=== PATIENT | female | born 1980 | race Caucasian/White ===

== ENCOUNTER → 2018-04-03 15:57 | Outpatient (CLI) | payer BC, SELFPAY ==
[2018-04-03 20:07] LABS: Chlamydia Trachomatis by PCR Negative (Negative); Neisserai gonorrhoeae by PCR Negative (Negative); Probe Check PASS; Sample Adequacy Control PASS; Specimen Processing Control PASS
[2018-04-07 14:27] LABS: HPV Reflexed? NOT INDICATED
== END ==
PROVIDERS: Visit Provider Obstetrics & Gynecology
DX: Z12.4 Encounter for screening for malignant neoplasm of cervix (principal); Z11.3 Encounter for screening for infections with a predominantly sexual mode of transmission
CPT/HCPCS: 87491; 87591; 88175; G0145

== ENCOUNTER → 2018-11-23 17:31 | Outpatient (CLI) | payer BC, SELFPAY ==
[2018-11-23 19:33] LABS: Chlamydia Trachomatis by PCR Negative (Negative); Neisserai gonorrhoeae by PCR Negative (Negative); Probe Check PASS; Sample Adequacy Control PASS; Specimen Processing Control PASS
== END ==
PROVIDERS: Referring Provider Obstetrics & Gynecology; Visit Provider Obstetrics & Gynecology
DX: Z11.3 Encounter for screening for infections with a predominantly sexual mode of transmission (principal)
CPT/HCPCS: 87491; 87591

== ENCOUNTER → 2018-12-16 11:12 | Outpatient (CLI) | payer BC, SELFPAY ==
[2018-12-16 14:07] LABS: Color, Urine Yellow (Yellow); Glucose, Dipstick Normal (Normal); Ketone-Dipstick Negative (Negative); Leukocyte Esterase-Dipstick Negative /ul (Negative); Nitrite-Dipstick Negative (Negative); Occult Blood-Urine Negative /ul (Negative); Protein-Dipstick Negative (Negative); Urine Bilirubin Dipstick Negative (Negative); Urine Clarity Sl. Cloudy (Clear); Urine Urobilinogen Normal (Normal)
[2018-12-16 15:49] LABS: Absolute Lymphocyte Count 2.17 X10^3/ul (0.83-4.51); Basophil# 0.03 X10^3/uL; Basophil% 0.3 % (0-1); Eosinophil# 0.16 X10^3/uL; Eosinophils% 1.6 % (0-5); Hematocrit 41.4 % (37-47); Hemoglobin 13.9 g/dl (12.0-15.0); Lymphocyte # 2.17 X10^3/ul (4.0); Lymphocyte % 21.8 % (19-41); Mean Corp Hgb Conc 33.6 g/gl (32-36); Mean Corpuscular Volume 89.4 fL (81-99); Mean Platelet Vol. 10.6 fl (6.2-12.0); Monocyte# 0.45 X10^3/uL; Monocyte% 4.5 % (0-10); Neutrophil % 70.2 % (47-70); Platelet Count 251 K/mm3 (150-450); RBC Distribution Width CV 12.8 % (11.6-14.6); RBC Distribution Width SD 41.1 fl (35.1-43.9); Red Blood Count 4.63 M/mm3 (4.2-5.4)
[2018-12-16 15:50] LABS: POSITIVE COUNT NO; POSITIVE DIFFERENTIAL NO; POSITIVE MORPHOLOGY NO
[2018-12-16 16:56] LABS: HIV - WCH Non-Reactive (Nonreactive); Rubella IgG > 500.0 IU/mL
[2018-12-18 01:11] LABS: Prenatal RPR NONREACTIVE (NONREACTIVE)
[2018-12-18 11:12] LABS: HEPATITIS B SURFACE AG Negative (Negative); Hep C Antibodies <0.1 s/co ratio (0.0-0.9)
--- OUTSIDE RECORDS SUMMARY | 2019-02-17 09:01 | XMS RPT_ITS ---
:1980 Author Organization OHIP Care Team Providers Name Role Phone Kristin Christianson Attending Unavailable Primay Care Physicia, No Primary Care Unavailable Kristin Christianson Referring Unavailable Kristin Christianson Attending Unavailable Primay Care Physicia, No Primary Care Unavailable Kristin Christianson Attending Unavailable Kristin Christianson Referring Unavailable Primay Care Physicia, No Primary Care Unavailable PROBLEMS PROBLEMS DATE TYPE CONDITION / CODE ATTENDING STATUS SOURCE 12/16/2018 Unknown Z34.81 - Encounter Kristin Christianson Active [place] for supervision of Community other normal Hospital , first Repository trimester / Z34.81(ICD-10) 11/25/2018 Unknown Z11.3 - Encounter Kristin Christianson Active [place] for screening for Community infections with a Hospital [facility] Repository sexual mode of transmission / Z11.3(ICD-10) 04/04/2018 Unknown Z12.4 - Encounter Kristin Christianson Active [place] for screening for Community malignant neoplasm Hospital of cervix / Repository Z12.4(ICD-10) PROCEDURES PROCEDURES No Procedure Records FoundRESULTS RESULTS URINALYSIS, ROUTINE Collected: 12/16/2018 Status: F Source: [place] (DIPSTICK) 11:15 AM [facility] HOSPITAL REPOSITORY Order Comment: How was Urine Obtained? Urine, Random TYPE CODE TESTS RESULT OUT OF RANGE REFERENCE UNITS LAB L400.3000 Yellow COLOR Normal Yellow LAB L400.3050 Clear Normal CLARITY Sl. Cloudy LAB L400.3200 Normal mg/dl Normal GLUCOSE, UR Normal LAB L400.3300 Negative mg/dL Normal BILIRUBIN URINE Negative LAB L400.3400 Negative mg/dl Normal KETONE UR Negative LAB L400.3465 1.002-1.030 Normal SP.GR. DIPSTX 1.010 LAB L400.3550 5.0 - 8.0 pH UR Normal 7.0 LAB L400.3600 Negative mg/dl PROT Normal DIPSTX Negative LAB L400.3700 Normal mg/dl Normal UROBILI Normal LAB L400.3750 Negative Normal NITRITE UR Negative LAB L400.3780 Negative /ul Normal OCCULT BLOOD-UR Negative LAB L400.3800 Negative /ul LEUK Normal ESTERASE Negative Performed By: #### L400.2010 #### [facility] [address] [place], [address] CBC W/DIFF, AUTOMATED Collected: 12/16/2018 Status: F Source: [place] 11:15 AM [facility] REPOSITORY TYPE CODE TESTS RESULT OUT OF RANGE REFERENCE UNITS LAB L100.1000 4.4-11.0 K/mm3 Normal WBC 10.0 LAB L100.1200 4.2-5.4 M/mm3 Normal RBC 4.63 LAB L100.1300 12.0-15.0 g/dl Normal HGB 13.9 LAB L100.1400 37-47 % Normal HCT 41.4 LAB L100.1500 81-99 fL Normal MCV 89.4 LAB L100.1600 27.0-32.0 pg Normal MCH 30.0 LAB L100.1700 32-36 g/gl Normal MCHC 33.6 LAB L100.1810 11.6-14.6 % Normal RDW CV 12.8 LAB L100.1820 35.1-43.9 fl Normal RDW SD 41.1 LAB L100.1900 150-450 K/mm3 Normal PLT 251 LAB L100.2000 6.2-12.0 fl Normal MPV 10.6 LAB L100.2100 47-70 % High NEUT% 70.2 LAB L100.2200 19-41 % Normal LY% 21.8 LAB L100.2300 0-10 % Normal MONO% 4.5 LAB L100.2400 0-5 % Normal EO% 1.6 LAB L100.2500 0-1 % Normal BASO% 0.3 LAB L100.2550 0.0-0.9 % High IM GRAN % 1.600 Result Comment: IG% - Immature Granulocytes (promyelocytes, myelocytes and metamyelocytes) > 1% indicates that a LEFT SHIFT is Present. LAB L100.2620 2.0-7.7 X10 3/uL Normal Absolute Neut 7.0 LAB L100.2720 0.83-4.51 X10 3/ul Normal Absolute Lymph 2.17 Performed By: #### L100.0100 #### [facility] [address] [place], [address] THYROID STIM HORMONE Collected: 12/16/2018 Status: F Source: [place] (TSH) 11:15 AM [facility] REPOSITORY TYPE CODE TESTS RESULT OUT OF RANGE REFERENCE UNITS LAB L501.9520 0.358-3.74 uIU/mL Normal TSH 0.50 Performed By: #### L501.9520 #### [facility] [address] [place], [address] VITAMIN D,25 HYDROXY Collected: 12/16/2018 Status: F Source: [place] 11:15 AM [facility] REPOSITORY TYPE CODE TESTS RESULT OUT OF REFERENCE UNITS RANGE LAB L506.1000 29.95-100.01 ng/mL Low Vitamin D 15.0 25-OH Result Comment: Vitamin D 25(OH) Status Range Deficiency <20 ng/mL (50nmol/L) Insuffciency 20 - 30 ng/mL (50 - 75 nmol/L) Sufficiency 30 - 100 ng/mL (75 - 250 nmol/L) Toxicity >100 ng/mL (>250 nmol/L) Performed By: #### L506.1000, L509.4000, L3890.6005 #### [facility] [address] [place], [address] RUBELLA IGG Collected: 12/16/2018 Status: F Source: [place] 11:15 AM [facility] REPOSITORY TYPE CODE TESTS RESULT OUT OF RANGE REFERENCE UNITS LAB L509.4000 IU/mL Normal Rubella IgG > 500.0 Result Comment: Antibody results Interpretation of Immune Status < 5 IU/ml Presumed Non-immune 5 - < 10 IU/ml Equivocal > or = 10 IU/ml Presumed Immune Performed By: #### L506.1000, L509.4000, L3890.6005 #### [facility] [address] [facility] [place], [place], [address] HIV - [facility] Collected: 12/16/2018 Status: F Source: [place] 11:15 AM [facility] REPOSITORY TYPE CODE TESTS RESULT OUT OF RANGE REFERENCE UNITS LAB L3890.6005 Nonreactive Normal HIV - [facility] Non-Reactive Performed By: #### L506.1000, L509.4000, L3890.6005 #### [facility] [address] [place], [address] T AND S-NO Collected: 12/16/2018 Status: F Source: [place] W/PNP 11:15 AM [facility] REPOSITORY Order Comment: Reason for Type AND Screen/Red Cells: Surgery? N TYPE CODE TESTS RESULT OUT OF RANGE REFERENCE UNITS LAB B10.0800 A Normal BLOOD POSITIVE TYPE GEL LAB B100.4050 Normal Ab SCREEN NEGATIVE GEL Performed By: #### B100.7550 #### [facility] [facility] [place], [place], [address] RPR Collected: 12/16/2018 Status: F Source: [place] 11:15 AM [facility] REPOSITORY TYPE CODE TESTS RESULT OUT OF REFERENCE UNITS RANGE LAB L700.5100 NONREACTIVE Normal RPR NONREACTIVE Performed By: #### L700.5100 #### [facility] [place], [address] HEPATITIS B SURFACE Collected: 12/16/2018 Status: F Source: [place] 11:15 AM [facility] REPOSITORY TYPE CODE TESTS RESULT OUT OF RANGE REFERENCE UNITS LAB L3100.0400 Negative Normal HB Negative SURF AG Result Comment: Performed at: [facility] [id number] Regional Planner: Dorian Burgos PhD, Phone: [phone] Performed By: #### L3100.0390, L3100.0625 #### [facility] (refer to report for specific site) refer to report for address and phone number HEPATITIS C ANTIBODIES Collected: 12/16/2018 Status: F Source: [place] 11:15 AM [facility] REPOSITORY TYPE CODE TESTS RESULT OUT OF RANGE REFERENCE UNITS LAB L3100.0650 0.0-0.9 s/co ratio Normal HEP C AB <0.1 Result Comment: Negative: < 0.8 Indeterminate: 0.8 - 0.9 Positive: > 0.9 The CDC recommends that a positive HCV antibody result be followed up with a HCV Nucleic Acid Amplification test (570920). Performed By: #### L3100.0390, L3100.0625 #### [facility] (refer to report for specific site) refer to report for address and phone number CT/NG [facility] BY PCR Collected: 11/23/2018 Status: F Source: [place] 3:00 PM [facility] REPOSITORY TYPE CODE TESTS RESULT OUT OF RANGE REFERENCE UNITS LAB L8200.2100 Negative Normal Chlam Negative Trac PCR LAB L8200.2200 Negative Normal NG by Negative PCR Performed By: #### L8200.1999 #### [facility] [address] [place], [place], [address] CT/NG [facility] BY PCR Collected: 04/03/2018 Status: F Source: [place] 2:30 PM [facility] REPOSITORY Order Comment: CYTOLOGY INFORMATION: - CLINICAL INFORMATION: - DATE LMP/MENOPAUSE: - COLLECTION VIAL: Thin Prep Vial - SALES AND MARKETING EXECUTIVE SOURCE: CERVICAL/ENDOCERVICAL - COLLECTION TECHNIQUE: BRUSH/SPATULA TYPE CODE TESTS RESULT OUT OF RANGE REFERENCE UNITS LAB L8200.2100 Negative Normal Chlam Negative Trac PCR LAB L8200.2200 Negative Normal NG by Negative PCR Performed By: #### L8200.1999 #### [facility] [address] [place], [place], [address] PAP I-G W/RFX HRHPV Collected: 04/03/2018 Status: F Source: [place] 2:30 PM [facility] REPOSITORY Order Comment: CYTOLOGY INFORMATION: - CLINICAL INFORMATION: - DATE LMP/MENOPAUSE: - COLLECTION VIAL: Thin Prep Vial - SALES AND MARKETING EXECUTIVE SOURCE: CERVICAL/ENDOCERVICAL - COLLECTION TECHNIQUE: BRUSH/SPATULA Specimen Comment: [id number] Specimen Comment: No. of containers..01 ThinPrep Vial TYPE CODE TESTS RESULT OUT OF RANGE REFERENCE UNITS LAB L7400.0800 . Normal DIAGN Comment Result Comment: NEGATIVE FOR INTRAEPITHELIAL LESION AND MALIGNANCY. LAB L7400.0900 . Normal ADEQ Comment Result Comment: Satisfactory for evaluation. Endocervical and/or squamous metaplastic cells (endocervical component) are present. LAB L7400.1400 . Normal PERFORM Comment Result Comment: Rayray Khanna Functional Manager (ASCP) LAB L7400.2575 . Normal TEST METHOD Comment Result Comment: This liquid based ThinPrep(R) pap test was screened with the use of an image guided system. LAB L7400.2600 . Normal . COMM LAB L7400.2700 . Normal PAPSMR Comment Result Comment: The Pap smear is a screening test designed to aid in the detection of premalignant and malignant conditions of the uterine cervix. It is not a diagnostic procedure and should not be used as the sole means of detecting cervical cancer. Both false-positive and false-negative reports do occur. LAB L7400.2800 . Normal HPV RFLX Comment Result Comment: The HPV DNA reflex criteria were not met with this specimen result therefore, no HPV testing was performed. Performed at: [address] [id number] Regional Planner: Shaylee Macias MD, Phone: [phone] Performed By: #### L7400.0350 #### [facility] (refer to report for specific site) refer to report for address and phone number ALLERGIES ALLERGIES DATE TYPE / CODE NAME / CODE REACTION SEVERITY SOURCE 02/06/2015 Drug No Known Unknown [facility] Allergy/4160 Allergies/F00 Hospital 69342(SNOMED [id number](RXNOR Repository CT) M) ENCOUNTERS ENCOUNTERS ADMIT/DISCHARGE ACCOUNT ADMITTING ENCOUNTER LOCATION SOURCE NUMBER CLASS 12/16/2018 [id number] Ambulatory [place] 8 [facility] ing:WOBLAB Repository 11/23/2018 [id number] Ambulatory [place] 1 [facility] ing:LABSPEC Repository 04/03/2018 [id number] [facility] [place] [facility] Repository PAYERS PAYERS ENCOUNTER GUARANTOR PAYER SUBSCRIBER SOURCE 12/16/2018 GILBERTO [id number] Primary GILBERTO KHANB: Miguel [place] Insurance:[id number] Number: Hospital [id number]: (330) [id number] Repository [phone] (HP) Date:2730-15-55[address] [address]LD: 12/16/2018 Secondary NOT GIVENUNK Miguel Insurance:SELF PAY [facility] Number: Effective Repository Date:2018-12-16 11/23/2018 GILBERTO [id number] Primary GILBERTO KHANB: [place] Insurance:[place]HEMPolic [id number] Number: Hospital [id number]: (330) [id number] Repository [phone] () Date:9736-38-19[address]K[place] [address]AT: 11/23/2018 Secondary NOT GIVENUNK [place] Insurance:SELF PAY [facility] Number: Effective Repository Date:2018-11-23 04/03/2018 Gilberto [id number] Primary Gilberto Santiago: [place] Insurance[facility]HE[employer]olic [id number] Hospital [id number]: (330) [id number] Repository [phone] () Date:0722-04-61M[address]NHLMS, [place] [address]EW: 04/03/2018 Secondary NOT GIVENUNK [place] Insurance:SELF PAY [facility] Number: Effective Repository Date:2018-04-03
== END ==
PROVIDERS: Visit Provider Obstetrics & Gynecology
DX: Z34.81 Encounter for supervision of other normal pregnancy, first trimester (principal)
CPT/HCPCS: 36415; 81002; 82306; 84443; 85025; 86703; 86762; 86803; 87340

== ENCOUNTER → 2019-04-21 08:52 | Outpatient (CLI) | payer BC, SELFPAY ==
[2019-04-21 10:47] LABS: Glucose Challenge Gest 1H 50g 76 mg/dL (70-140)
[2019-04-21 10:49] LABS: Hematocrit 35.6 % (37-47); Hemoglobin 12.1 g/dl (12.0-15.0); Mean Corpuscular Hgb 30.2 pg (27.0-32.0); Mean Corpuscular Volume 88.8 fL (81-99); Mean Platelet Vol. 11.1 fl (6.2-12.0); Platelet Count 177 K/mm3 (150-450); RBC Distribution Width SD 40.8 fl (35.1-43.9); Red Blood Count 4.01 M/mm3 (4.2-5.4); Scan Indicated on CBC? Y/N NO
== END ==
PROVIDERS: Visit Provider Obstetrics & Gynecology
DX: Z34.83 Encounter for supervision of other normal pregnancy, third trimester (principal)
CPT/HCPCS: 36415; 82950; 85027

== ENCOUNTER → 2019-06-22 13:38 | Outpatient (CLI) | payer BC, SELFPAY | PROVIDERS: Visit Provider Obstetrics & Gynecology | DX: Z36.85 Encounter for antenatal screening for Streptococcus B (principal) | CPT/HCPCS: 87081 ==

== ENCOUNTER 2019-07-01 02:40 | Inpatient (IN) | payer BC, SELFPAY ==
[2019-07-01] MEDS: Lactated Ringers 1,000 ML 999 ML IV (03:20)
[2019-07-01 03:33] VITALS: BMI 31.8
[2019-07-01 04:10] LABS: Hematocrit 34.5 % (37-47); Hemoglobin 11.7 g/dL (12.0-15.0); Mean Corp Hgb Conc 33.9 g/dL (32-36); Mean Corpuscular Hgb 30.6 pg (27.0-32.0); Mean Corpuscular Volume 90.3 fL (81-99); POSITIVE COUNT YES; POSITIVE MORPHOLOGY YES; Platelet Count 170 K/mm3 (150-450); RBC Distribution Width CV 13.1 % (11.6-14.6); RBC Distribution Width SD 42.8 fl (35.1-43.9); Red Blood Count 3.82 M/mm3 (4.2-5.4); White Blood Count 11.3 K/mm3 (4.4-11.0)
[2019-07-01 04:11] LABS: Differential Indicated MANUAL DIFF
[2019-07-01 04:19] LABS: Prothrombin Time (Protime)PT. 12.6 SECONDS (11.7-14.9)
[2019-07-01 04:24] LABS: Partial Thromboplast Time 29.9 Seconds (24.1-36.2)
[2019-07-01 04:36] LABS: Eosinophil 1 % (0-5); Lymphocyte 27 % (19-41); Metamyelocyte 2 % (0-1); Monocyte 3 % (0-10); Myelocyte 1 (0-0); Neutrophil-Segmented 66 % (47-70); Platelet Estimate ADEQUATE (ADEQ); Total Cells Counted 100 (MANUAL DIFF)
[2019-07-01 04:37] LABS: Absolute Lymphocyte Count 3.05 X10^3/uL (0.83-4.51); Absolute Neutrophil Count 7.5 X10^3/uL (2.0-7.7); Lymphocyte # 3.05 X10^3/ul (4.0); Neutrophil # 7.46 X10^3/uL (2.7-7.7)
[2019-07-01] MEDS: Lactated Ringers 1,000 ML 50 ML IV ×2 (04:42→12:51)
--- NOTE | 2019-07-01 04:49 | PCM.HPOB.BLA ---
History and Physical Date of Admission: 07/01/19 OB HISTORY AND PHYSICAL EXAMINATION History of this : 39 yo female Ab7 with EDC 07/13/2019 by Ultrasound, presents to Labor and Delivery with CC of gush of fluid. ROM confirmed on ROM plus. 0145 38 2/7 wk EGA. care remarkable for 1.) Grandmultiparity 2. ) SABs x 6. 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 Lovenox to heparin at 36 wks. 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 Repeat pap in Nov 2016 WNL 7.) AMA-- reviewed testing available including MSAFP NT, Cell free DNA testing. Declined MSAFP and CF testing 8.) Youngest son - Congenital Hypothyroidism, with microcephaly on sono during , delivered in [facility]. Approx Oct 2017 Pertinent Past Medical History: As above. Allergies: NKDA Medications: During - NeevoDHA (with algal oil) 27 mg iron-1.13 mg-581.92 mg capsule; magnesium 30 mg tablet; potassium 99 mg tablet; Zofran ODT 4 mg disintegrating tablet; Lovenox 40 mg/0.4 mL subcutaneous syringe; Prometrium 200 mg capsule;Vitamin D3 2,000 unit tablet;heparin (porcine) 5,000 unit/mL (1 mL) injection cartridge; aspirin 81 mg tablet,delayed release; Zoloft 50 mg tablet Review of Systems: gush of fluid. Not feeling UCs. PHYSICAL EXAMINATION General Appearence: 39 yo female in no acute distress Vital Signs: AF, VSS Heart: RRR without rubs or gallops Lungs: CTA x 2 Breasts: deferred Abdomen: gravid Pelvis: Cervix: 3/70/-2 midposition. cephalic AGA Movement: present Heart: 120-130s avg variability Accels. Irregular, rare UC noted Impression /Plan: Intrauterine . 38 2/7 wk SROM. Pitocin prn. May elect epidural. PT/PTT/INR drawn 2/2 hx of bid heparin. Anticipate Patient seen and examined at time of H and P Gita Christianson MD 07/01/19 0500
[2019-07-01] MEDS: Oxytocin 30 units/NS 500 ml 30 UNITS/500 ML IV.SOLN IV (05:17)
[2019-07-01 05:24] LABS: Red Cell Morphology NORM C+C NORMAL (NORM C&C)
[2019-07-01] MEDS: fentaNYL-bupivacaine (epidural) 100 ML BAG EPIDURAL (11:30)
--- NOTE | 2019-07-01 12:34 | PCM.PN.BLA ---
Progress Note LABOR PROGRESS NOTE Getting more comfortable w/ epidural AVSS Pitocin at 18 mIU/min Feeling lower abdominal pressure EFM 120-130s with accels. UCs q 2-4 mins CX: deferred. Nurse plans check soon with Baez placement A/P: 38 2/7 wk SROM. Pitocin induction. Epidural placed. Reassuring EFM Adequate UCs by toco. Anticipate .
[2019-07-01 14:07] LABS: Pathologist Review Reviewed
[2019-07-01] MEDS: 0.9% Saline Lock 10 ML Syringe IV (14:11)
[2019-07-01] MEDS: Oxytocin 30 units/NS 500 ml 30 UNITS/500 ML IV.SOLN 334 UNITS IV (16:07)
--- NOTE | 2019-07-01 16:11 | PCM.OPRPT ---
Vaginal Delivery Maternal Presentation: Active Labor 38 2/7 wk spont labor Amniotic Membrane Rupture Type: Spontaneous at home Amniotic Fluid Description: Clear Final LYN: 07/13/19 Final LYN Source: US <20 weeks Gestational age: 38 Weeks and 2 Days Date of Procedure: 07/01/19 Pre-Operative Diagnosis: 38 2/7 wk labor Post-Operative Diagnosis: same Surgery/ Procedure Performed: Spontaneous Vaginal Delivery Type of Anesthesia: Epidural Presentation: Vertex, EYAL Placental Delivery Description: Spontaneous, Expressed Cord Vessel Description: 3 Vessels Cord Entanglement: Around neck x 1, loose Drain: Baez to straight drain Estimated Blood Loss: 100 A gender: Male (1 minute): 8 (5 minute): 9 Episiotomy Description: None Laceration: None Medications given after delivery: IV Pitocin Complications: None
--- NOTE | 2019-07-01 16:13 | DCINST_ITS ---
Discharge Diet: No Restrictions Discharge Activity: May Shower, May Take a Tub Bath May resume sexual activity in: 4-6 weeks Additional Activity Instructions:: Nothing in the vagina for 4-6 weeks. You may return to work/school in 6 weeks. Additional Instructions: If you experience any of the following, contact your healthcare provider. * Bleeding that soaks a pad every hour for 2 hours * Fever 100.4 or higher * Problems urinating (including inability to urinate or burning while urinating). * Visual changes * Severe headache * Flu-like symptoms * Pain or redness in one of both of your breasts * Pain, warmth, tenderness or swelling in your legs, especially the calf area * Frequent nausea and vomiting * Symptoms of depression or anxiety If you experience any of the following, call 911 or go to the nearest Emergency Room. * Chest pain * Problems breathing * Seizure activity * Partial or complete paralysis of a body part, slurred speech, weakness or drooping of the face, or a sudden inability to walk or hold your balance Allergies/Adverse Reactions: Allergies No Known Allergies Allergy (Verified 07/01/19 03:32) Medications to take at Discharge Vits [Prenatabs FA] 1 tablet PO DAILY 02/06/15 Heparin Injection 5,000 units SC BID 02/09/15 Please Follow Up With: Kristin Christianson MD - [phone] When: Call to make an appointment with your doctor in 6 weeks. Primary Care Physician: Care Physician,No Primary [Primary Care Provider] - Test Results: Test results from this visit will be discussed in further detail at your follow- up appointment, if applicable. Proposed Discharge Date: 07/03/19
--- NOTE | 2019-07-01 16:13 | PCM.DCVAG ---
Discharge Diet: No Restrictions Discharge Activity: May Shower, May Take a Tub Bath May resume sexual activity in: 4-6 weeks Additional Activity Instructions:: Nothing in the vagina for 4-6 weeks. You may return to work/school in 6 weeks. Additional Instructions: If you experience any of the following, contact your healthcare provider. Bleeding that soaks a pad every hour for 2 hours Fever 100.4 or higher Problems urinating (including inability to urinate or burning while urinating). Visual changes Severe headache Flu-like symptoms Pain or redness in one of both of your breasts Pain, warmth, tenderness or swelling in your legs, especially the calf area Frequent nausea and vomiting Symptoms of depression or anxiety If you experience any of the following, call 911 or go to the nearest Emergency Room. Chest pain Problems breathing Seizure activity Partial or complete paralysis of a body part, slurred speech, weakness or drooping of the face, or a sudden inability to walk or hold your balance Allergies/Adverse Reactions: Allergies No Known Allergies Allergy (Verified 07/01/19 03:32) Medications to take at Discharge Vits [Prenatabs FA] 1 tablet PO DAILY 02/06/15 Heparin Injection 5,000 units SC BID 02/09/15 Please Follow Up With: Kristin Christianson MD - [phone] When: Call to make an appointment with your doctor in 6 weeks. Primary Care Physician: Care Physician,No Primary [Primary Care Provider] - Test Results: Test results from this visit will be discussed in further detail at your follow-up appointment, if applicable. Proposed Discharge Date: 07/03/19
[2019-07-01] MEDS: Methylergonovine 0.2 MG/ML Ampul IM (16:32)
[2019-07-01] MEDS: Oxytocin 30 units/NS 500 ml 30 UNITS/500 ML IV.SOLN 167 UNITS IV (16:37)
[2019-07-01] MEDS: Ondansetron 4 MG/2 ML Vial IV (17:15)
[2019-07-01 19:32] VITALS: BP 118/87; PULSE 104; RESP 18; TEMP 36.2
[2019-07-01 23:04] VITALS: BP 116/56; PULSE 85; RESP 16; TEMP 36.7
[2019-07-02 03:26] VITALS: BP 126/75; PULSE 71; RESP 16; TEMP 36.6
--- NOTE | 2019-07-02 04:54 | NURSING ---
this RN assumed care of pt at 0320.
[2019-07-02] MEDS: Senna/Docusate Sodium 1 Tablet PO (08:25)
[2019-07-02] MEDS: Prenatal Vits Tablet 1 TABLET PO (08:26)
[2019-07-02 08:34] VITALS: BP 103/73; PULSE 84; RESP 16; TEMP 36.6
--- NOTE | 2019-07-02 08:43 | PCM.PN.OB ---
Subjective: PPD#1 vaginal delivery Doing well. Cramping with nursing only No concerns voiced. Would like to go home today. - Physical Exam General: Alert, Oriented x3, Cooperative, No apparent distress HEENT: Atraumatic, EOMI Neck: Supple Neurological: Cranial nerves II-XII grossly intact Psych/Mental Status: Normal Affect Vital Signs Temp Pulse Resp BP 97.9 F 84 16 103/73 07/02/19 08:34 07/02/19 08:34 07/02/19 08:34 07/02/19 08:34 Oxygen Delivery Method Room Air Weight: 85 kg Body Mass Index (BMI) 31.8 Intake and Output for Last 24 Hours 06/30/19 07/01/19 07/02/19 23:59 23:59 23:59 Intake Total 3647 / 3647 Output Total 2750 / 2750 Balance 897 / 897 Laboratory Tests Past 24 Hrs 07/01/19 03:20 Diff Path Review Reviewed Medical Necessity - Tobacco Use Smoking Status: Never smoker Assessment/Plan PPD#1 Stable pp. Continue care. Plan dischg later today per pt request, if baby is released.
[2019-07-02 12:51] VITALS: BP 118/75; PULSE 76; RESP 16; TEMP 36.6
== END 2019-07-02 16:35 | disposition home or self-care (01) | DRG 807 ==
PROVIDERS: Admitting Provider Obstetrics & Gynecology; Referring Provider Obstetrics & Gynecology; Visit Provider Obstetrics & Gynecology
DX: O42.02 Full-term premature rupture of membranes, onset of labor within 24 hours of rupture (principal); Z37.0 Single live birth; O26.23 Pregnancy care for patient with recurrent pregnancy loss, third trimester; O69.81X0 Labor and delivery complicated by cord around neck, without compression, not applicable or unspecified; Z3A.38 38 weeks gestation of pregnancy; Z87.59 Personal history of other complications of pregnancy, childbirth and the puerperium
CPT/HCPCS: 59025; 59050; 85025; 85610; 85730; 86850; 86900; 99218; J7120; A4216; G0378; J2405